=== PATIENT | female | born 1975 | race Caucasian/White ===

== ENCOUNTER 2022-08-02 12:16 | Emergency (ER) | payer BC, OTHER ==
[2022-08-02] MEDS ORDERED: AMOX TR-K CLV1 EAC4 PO (14:59)
== END 2022-08-02 15:05 | disposition home or self-care (01) ==
LOC: ER1 12:16
DX: S61.042A Puncture wound with foreign body of left thumb without damage to nail, initial encounter (principal); Z90.710 Acquired absence of both cervix and uterus; W31.89XA Contact with other specified machinery, initial encounter; Y92.009 Unspecified place in unspecified non-institutional (private) residence as the place of occurrence of the external cause; Z23 Encounter for immunization
CPT/HCPCS: 10120; 73140; 90471; 90714; 99283